=== PATIENT | male | born 1955 | race Caucasian/White ===

== ENCOUNTER 2020-06-12 19:52 | Emergency (ER) | payer OTHER, SELFPAY ==
[2020-06-12 20:00] VITALS: BP 179/79; PULSE 63; RESP 18; TEMP 36.6; O2SAT 100; BMI 24.4
--- NOTE | 2020-06-12 20:21 | PC.NURSE ---
patient a&ox3, lt thumb bandaged as he was sent from [facility], pt states he has 0/10 pain, he hammered his thumb while installing a fence around 430 pm today, pt stated he only went for treatment because the area was bleeding and would soak through the bandage and states he has not had any pain. patient has + csm/pulses in the extremity, pt awaiting provider.
--- NOTE | 2020-06-12 20:38 | ED.EXTPRO ---
HPI - Extremity Problem General Chief complaint: Extremity Problem Stated complaint: Thumb Injury Time Seen by Provider: 06/12/20 20:33 Source: patient Mode of arrival: ambulatory Limitations: no limitations History of Present Illness HPI Narrative: Patient presents to ED for left thumb injury. Patient states he was at work and by accident he hit the hammer on his left thumb and since then had some slight bleeding. Patient is unaware of his tetanus status. Patient denies any pain to thumb or decreased movement. Patient states he has complete range of motion of left thumb. Related Data Previous Rx's Medication Instructions Recorded cephalexin [Keflex] 500 mg PO QID #28 cap 06/12/20 naproxen 500 mg PO BID PRN #20 tab 06/12/20 Allergies Allergy/AdvReac Type Severity Reaction Status Date / Time aspirin Allergy Unknown Verified 01/27/19 00:00 Review of Systems Review of Systems: Yes all other systems are reviewed and are negative Constitutional: Constitutional: Reports as per HPI and Reports no additional constitutional complaints Eyes: Eyes: Reports as per HPI and Reports no additional eye complaints ENT: Reports system reviewed and no additional complaints, except as documented and Reports as per HPI Cardiovascular: Cardiovascular: Reports as per HPI and Reports no additional cardiovascular complaints Respiratory: Respiratory: Reports as per HPI and Reports no additional respiratory complaints Gastrointestinal: Gastrointestinal: Reports as per HPI and Reports no additional gastrointestinal complaints Genitourinary: Genitourinary: Reports no additional male genitourinary complaints and Reports as per HPI Musculoskeletal: Musculoskeletal: Reports no additional musculoskeletal complaints and Reports as per HPI Comments: Left thumb injury Neurologic: Reports system reviewed and no additional complaints, except as documented and Reports as per HPI Psychiatric: Psychiatric: Reports no additional psychiatric complaints and Reports as per HPI [facility] Past Medical History Medical History (Updated 06/13/20 @ 00:10 by Daysi Ramey) HTN (hypertension) Surgical History (Updated 06/12/20 @ 20:02 by Betzy Arias) History of quadruple bypass Social History Social History Alcohol intake: never Smoking Status: Never smoker Use of substances other than those prescribed or required for medical reasons: No Advance Directives: No Advance Directives Information Provided: No Physical Exam Vital Signs: Vital Signs: Last Vital Signs Temp 98.3 F 06/12/20 21:38 Pulse 63 06/12/20 21:38 Resp 16 06/12/20 21:38 BP 166/65 H 06/12/20 21:38 Pulse Ox 99 06/12/20 21:38 Body Mass Index 24.4 Const: General: cooperative, healthy appearing, comfortable, no acute distress and well developed Orientation/consciousness: oriented to person, oriented to place, oriented to time and patient oriented x3 HENMT: Head: Yes normal to inspection and Yes No palpable skull fracture present Eyes: General: appearance normal, both eyes and all related structures Visual Garcia: normal visual garcia by confrontation Neck: Neck: Yes normal visual inspection, Yes full ROM, Yes no lymphadenopathy, Yes no meningeal signs and No tender Chest: Chest palpation & inspection: normal inspection of the chest, normal palpation of entire chest wall and no localized rib tenderness Resp: Effort & Inspection: normal respiratory effort and able to speak in complete sentences Cardio: Jugular venous distension: no JVD Heart sounds: S1 normal heart sound present and S2 normal heart sound present GI: Inspection: Yes normal to inspection and Yes abdominal wall ecchymosis : General: No CVA tenderness and Yes no CVA tenderness Back/Spine/Pelvis: Back: no CVA tenderness, No CVA tenderness and No back tenderness Skin: General skin exam: no rashes or lesions noted Neuro: General: oriented to person, oriented to place, oriented to time, patient oriented x3, gait normal, no meningeal signs and CN's II-XI intact bilaterally Cranial nerves: Yes CN's II-XII intact bilaterally Extrem: Other: left thumb positive for bleeding from under nail ( that is cracked) of thumb indicative of trauma. Patient has complete range of motion of left thumb. Negative for any tendon injury. Neuro exam is intact. Patient presently not in any pain. Psych: Appearance: grossly normal, well kempt and not disheveled Course Course Course Narrative: Patient states he is up-to-date with his tetanus. Patient does not want anything for pain. Patient will have x-ray ordered. Reevaluation(s) Reevaluation #1: X-ray show avulsion tuft fracture. Patient will be discharged with antibiotics. Will discuss with attending if nail should be removed to evaluate for just follow-up with hand surgeon. Time: 20:55 Reevaluation #2: Dr. Kendall, ER attendant,does not recommend removing nail to examine nail bed and states just placed finger in xeroform with guaze and finger splint. Patient should follow up with hand surgeon for tuft repair. Patient discharged with antiobitics. Time: 21:27 MDM - Extremity (Nontraumatic) MDM Narrative Medical decision making narrative: finger tuft fracture. Discharge Plan Discharge Clinical Impression: Closed fracture of tuft of distal phalanx of finger Patient Disposition: Home, Self-Care Instructions: Finger Fracture (ED) Additional Instructions: Return to the ED for increased swelling of finger, redness, severe pain, inability to move, numbness / tingling, red streaks, or any other concerning symptoms. patient can take over the counter Prescriptions: New cephalexin [Keflex] 500 mg capsule 500 mg PO QID Qty: 28 RF: 0 naproxen 500 mg tablet 500 mg PO BID PRN (Reason: pain) Qty: 20 RF: 0 Referrals: Jessy Banks MD [Physician] - 2 days (Left thumb distal tuft fracture. Please call for follow up.) Stand Alone Forms: Work/School Release Interventions: ED Discharge Assessment Last Done: 06/12/20 21:58 Discharge Date/Time: 06/12/20 21:59 Print Language: Vietnamese
--- NOTE | 2020-06-12 20:42 | XR_ITS ---
EXAMINATION: LEFT HAND 3 VIEWS CLINICAL INFORMATION: Left thumb pain. COMPARISON: None. TECHNIQUE: PA, lateral, oblique views of the left hand were obtained. FINDINGS: There is soft tissue swelling to the first digit. There is a tiny avulsion fracture from the tuft of the first distal phalanx. XR/XR hand LT min 3V IMPRESSION: Soft tissue swelling with tiny avulsion to the tuft of the first distal phalanx.
--- NOTE | 2020-06-12 20:53 | PC.NURSE ---
patient states that he found his tetanus vac card and had it 05/2017, provider was notified and injection was NOT administered.
[2020-06-12 21:38] VITALS: BP 166/65; PULSE 63; RESP 16; TEMP 36.8; O2SAT 99
== END 2020-06-12 21:59 | disposition home or self-care (01) ==
PROVIDERS: Emergency Provider Emergency Medicine; PCP Internal Medicine
DX: S62.522A Displaced fracture of distal phalanx of left thumb, initial encounter for closed fracture (principal); M79.642 Pain in left hand; Y29.XXXA Contact with blunt object, undetermined intent, initial encounter; Y93.9 Activity, unspecified; Y92.9 Unspecified place or not applicable; Y99.9 Unspecified external cause status; Z79.899 Other long term (current) drug therapy; Z23 Encounter for immunization
CPT/HCPCS: 73130; 90471; 90715; 99284